=== PATIENT | female | born 1985 | race Caucasian/White ===

== ENCOUNTER 2019-10-26 21:39 | Emergency (ER) | payer SELFPAY ==
[~2019-10-26] VITALS: Ht 157.5 cm; Wt 54.4 kg
[2019-10-26] MEDS ORDERED: SODIUM CHLORIDE 0.9% 500 ML IVB ONE (22:13)
[2019-10-26] MEDS ORDERED: ONDANSETRON HCL 4 MG/2 ML VIAL IV ONE (22:15)
[2019-10-26] MEDS ORDERED: MORPHINE SULFATE 4 MG/ML SYR/VIAL IV ONE (22:15)
[2019-10-26 22:19] LABS: Basophils # (auto) 0.1 10 ^3/uL (0-0.2); Basophils % (auto) 0.6 % (0.0-2.0); Eosinophils # (auto) 0 10 ^3/uL (0-0.8); Eosinophils % (auto) 0.3 % (0.0-7.0); Lymphocytes # (auto) 1.4 10 ^3/uL (0.4-5.4); Lymphocytes % (auto) 12.1 % (10.0-50.0); Mean Corpuscular Hemoglobin 29.2 pg (28.0-32.0); Mean Corpuscular Hgb Conc. 33.3 g/dL (32.0-36.0); Mean Corpuscular Volume 87.6 fL (80.0-100.0); Monocytes # (auto) 0.4 10 ^3/uL (0-1.3); Monocytes % (auto) 3.6 % (0.0-12.0); Neutrophils # (auto) 9.6 10 ^3/uL (1.6-8.6); Neutrophils % (auto) 83.4 % (37.0-80.0); Nucleated Red Blood Cells % 0.1 %; Platelet Count (auto) 155 10^3/uL (140-450); Red Cell Distribution Width 13.6 % (11.8-14.3); White Blood Cell 11.6 10^3/uL (4.4-10.8)
[2019-10-26 22:35] LABS: Albumin 4.2 g/dL (3.4-5.0); Potassium 3.5 mmol/L (3.5-5.1)
[2019-10-26 22:38] LABS: BUN/Creatinine Ratio 22.1
[2019-10-26 22:41] LABS: Bilirubin, Total 0.7 mg/dL (0.2-1.0)
[2019-10-26 22:53] LABS: Magnesium 2.1 mg/dL (1.6-2.6)
[2019-10-27 00:13] LABS: Urine Bacteria MOD /hpf (None Seen); Urine Blood TRACE /uL (Negative); Urine Mucus FEW (None Seen); Urine Specific Gravity 1.019 (1.001-1.035); Urine WBC 31 /hpf (0 - 5)
[2019-10-27] MEDS ORDERED: CEFTRIAXONE SODIUM 2 GM in D5W 5% 50 ML IV ONE (01:45)
[2019-10-27] MEDS ORDERED: SODIUM CHLORIDE 0.9% 1,000 ML IV ONE (01:45)
[2019-10-27] MEDS ORDERED: cefTRIAXone SOD 1,000 MG VL ONE (02:05)
[2019-10-27 03:00] VITALS: BP 106/60
== END 2019-10-27 04:35 | disposition home or self-care (01) ==
LOC: ER 21:40
DX: G62.9 Polyneuropathy, unspecified (principal)
CPT/HCPCS: 36415; 80053; 81001; 81025; 82150; 83605; 83690; 83735; 85025; 87040; 87086; 96361; 96365; 96375; 99284; J0696; J2270; J2405; J7030; J7060; 96374

== ENCOUNTER 2023-06-27 11:23 | Emergency (ER) | payer MEDICAID, OTHER ==
[~2023-06-27] VITALS: Ht 157.5 cm; Wt 50.6 kg
[2023-06-27 11:51] LABS: Basophils # (auto) 0 10 ^3/uL (0-0.2); Basophils % (auto) 0.1 % (0.0-2.0); Eosinophils # (auto) 0 10 ^3/uL (0-0.8); Hematocrit 37.7 % (36.0-46.0); Hemoglobin 12.5 g/dL (12.2-16.2); Lymphocytes # (auto) 0.6 10 ^3/uL (0.4-5.4); Lymphocytes % (auto) 4.2 % (10.0-50.0); Mean Corpuscular Hemoglobin 28.5 pg (28.0-32.0); Mean Corpuscular Hgb Conc. 33.2 g/dL (32.0-36.0); Mean Corpuscular Volume 85.9 fL (80.0-100.0); Monocytes # (auto) 0.1 10 ^3/uL (0-1.3); Neutrophils # (auto) 12.8 10 ^3/uL (1.6-8.6); Neutrophils % (auto) 94.7 % (37.0-80.0); Red Blood Cells 4.39 10^6/uL (4.0-5.20); Red Cell Distribution Width 14.2 % (11.8-14.3); White Blood Cell 13.5 10^3/uL (4.4-10.8)
[2023-06-27 11:57] LABS: Chloride 108 mmol/L (98-107); Potassium 3.8 mmol/L (3.5-5.1); Sodium 139 mmol/L (136-145)
[2023-06-27] MEDS: ONDANSETRON HCL 4 MG/2 ML VIAL IV ONE ×2 (11:57→13:47)
[2023-06-27 11:58] LABS: Anion Gap 12 (5-15); Calcium 9.6 mg/dL (8.5-10.1); Carbon Dioxide 19 mmol/L (20-30)
[2023-06-27] MEDS: SODIUM CHLORIDE 0.9% 1,000 ML IV ONE ×2 (11:58→17:27)
[2023-06-27 12:03] LABS: BUN/Creatinine Ratio 12.8 (10.0-20.0); Blood Urea Nitrogen 6 mg/dL (9-23); Glucose 122 mg/dL (74-106)
[2023-06-27 12:46] LABS: Urine Bacteria None Seen /hpf (None Seen); Urine WBC None Seen /hpf (0 - 5)
[2023-06-27 13:10] LABS: Amphetamine Screen, Urine Neg (NEGATIVE); Barbiturate Scree,Urine Neg (NEGATIVE); Benzodiazephine Screen, Urine Neg (NEGATIVE); Cannabinoid Screen, Urine Pos (NEGATIVE); Cocaine Screen, Urine Neg (NEGATIVE); Opiate Scree,Urine Neg (NEGATIVE); Phencyclidine Screen, Urine Neg (NEGATIVE)
[2023-06-27 13:14] LABS: Urine Color Colorless (Yellow); Urine Mucus FEW (None Seen); Urine Specific Gravity 1.022 (1.001-1.035)
[2023-06-27 13:16] LABS: Urine Blood Negative /uL (Negative); Urine Protein, UAD Negative (Negative); Urine Urobilinogen Normal (Negative)
[2023-06-27 13:17] LABS: Urine Clarity CLOUDY (Clear)
[2023-06-27] MEDS: PANTOPRAZOLE 40 MG/10 ML VIAL INJ IV ONE (13:47)
[2023-06-27] MEDS ORDERED: CEPH250C PO (16:20)
[2023-06-27] MEDS ORDERED: ZOFR4T PO (16:21)
[2023-06-27] MEDS ORDERED: METO-281 PO (17:17)
[2023-06-27] MEDS: PROMETHAZINE HCL 25 MG/ML 1ML IV ONE (17:26)
[2023-06-27 18:33] VITALS: BP 124/72; PULSE 70; RESP 18; TEMP 97.9; O2SAT 98
== END 2023-06-27 18:34 | disposition home or self-care (01) ==
LOC: ER 11:23
DX: O26.891 Other specified pregnancy related conditions, first trimester (principal); R10.2 Pelvic and perineal pain; R55 Syncope and collapse; F12.10 Cannabis abuse, uncomplicated; Z79.899 Other long term (current) drug therapy; Z3A.14 14 weeks gestation of pregnancy
CPT/HCPCS: 36415; 76805; 80048; 80307; 81001; 84702; 85025; 96361; 96374; 96375; 96376; 99285; C9113; J2405; J2550; J7030

== ENCOUNTER 2023-06-28 05:20 | Emergency (ER) | payer MEDICAID ==
[~2023-06-28] VITALS: Ht 157.5 cm; Wt 51.3 kg
[~2023-06-28 05:20] MED LIST: CEPH250C PO; METO-281 PO; ZOFR4T PO
[2023-06-28] MEDS: SODIUM CHLORIDE 0.9% 1,000 ML IV ONE ×3 (06:45→07:20)
[2023-06-28] MEDS: PROMETHAZINE HCL 25 MG/ML 1ML IV ONE (07:18)
[2023-06-28] MEDS: METOCLOPRAMIDE HCL 5MG/ml INJ 2ml VIAL IV ONE (09:43)
[2023-06-28 11:35] VITALS: BP 139/91; PULSE 67; RESP 18; O2SAT 99
== END 2023-06-28 11:38 | disposition home or self-care (01) ==
LOC: ER 05:20
DX: O26.891 Other specified pregnancy related conditions, first trimester (principal); R10.84 Generalized abdominal pain; F12.10 Cannabis abuse, uncomplicated; Z3A.14 14 weeks gestation of pregnancy
CPT/HCPCS: 96361; 96374; 96375; 99284; J2550; J2765; J7030

== ENCOUNTER 2023-06-29 00:16 | Emergency (ER) | payer MEDICAID ==
[~2023-06-29] VITALS: Ht 157.5 cm; Wt 51.4 kg
[~2023-06-29 00:16] MED LIST changes: -ZOFR4T PO
[2023-06-29 01:02] LABS: Urine Bacteria FEW /hpf (None Seen); Urine Blood Negative /uL (Negative); Urine Clarity Clear (Clear); Urine Color Yellow (Yellow); Urine Mucus FEW (None Seen); Urine Protein, UAD 1+ (Negative); Urine Specific Gravity 1.023 (1.001-1.035); Urine Urobilinogen Normal (Negative); Urine WBC 2 /hpf (0 - 5)
[2023-06-29] MEDS: SODIUM CHLORIDE 0.9% 1,000 ML IV ONE (01:40)
[2023-06-29] MEDS: METOCLOPRAMIDE HCL 5MG/ml INJ 2ml VIAL IV ONE (01:44)
[2023-06-29] MEDS: PROMETHAZINE HCL 25 MG/ML 1ML IV ONE (01:45)
[2023-06-29 03:20] VITALS: BP 137/98; PULSE 61; RESP 18; TEMP 98; O2SAT 99
== END 2023-06-29 03:20 | disposition home or self-care (01) ==
LOC: ER 00:16
DX: O21.8 Other vomiting complicating pregnancy (principal); O26.892 Other specified pregnancy related conditions, second trimester; F12.10 Cannabis abuse, uncomplicated; Z79.899 Other long term (current) drug therapy; Z3A.14 14 weeks gestation of pregnancy
CPT/HCPCS: 81001; 96361; 96374; 96375; 99284; J2550; J2765; J7030